=== PATIENT | male | born 1990 | race African-American/Black ===

== ENCOUNTER 2018-06-17 23:29 | Emergency (ER) | payer SELFPAY ==
[~2018-06-17] VITALS: Ht 175.3 cm; Wt 127.0 kg
[2018-06-17 23:52] VITALS: BP 146/80
== END 2018-06-18 02:47 | disposition home or self-care (01) ==
LOC: ER 23:31
DX: K59.00 Constipation, unspecified (principal)
CPT/HCPCS: 71046